=== PATIENT | female | born 1975 | race Caucasian/White ===

== ENCOUNTER 2016-06-11 13:17 | Emergency (ER) | payer MEDICAID ==
[2016-06-11] MEDS ORDERED: 0.9 % SODIUM CHLORIDE 1,000 ML BAG IV ONE (13:37)
[2016-06-11] MEDS ORDERED: ONDANSETRON HCL IV 4 MG/2 ML VIAL IVP ONE (13:37)
--- NOTE | 2016-06-11 13:38 | Emergency Department Record ---
History of Present Illness - General Chief Complaint: Numbness Stated Complaint: NUMB/DIZZY/HEADFEELS LIKE IT IS ON FIRE Time Seen by Provider: 06/11/16 13:29 Source: Patient, Family Mode of Arrival: Ambulatory Limitations: No limitations - History of Present Illness Initial Comments: 40 yo female presents with 12 hours of feeling numb all over with a warm or burning feeling to the right racial area. No fevers. She denies any headache. She has some nausea. No vomiting. No recent illness. No changes in vision. No coordination changes. No speech changes. No chest pain. No back or abdominal pain. No difficulty walking. No history of HTN, DM, Neurologic, Cardiovascular disorders. Family history positive for HTN and DM only. PCP is the [facility] with Radha Astorga. Onset/Timin -: Hour(s) Location: Right face History of same: No Place: Home Severity: Moderate Quality: Burning Improves With: None Worsens With: None Context: Gradual onset Treatments Prior to Arrival: None - Linda Coma Scale Eye Response: (4) Open spontaneously Motor Response: (6) Obeys commands Verbal Response: (5) Oriented [place] Total: 15 - Related Data Home Medications: Home Medications Medication Instructions Recorded Confirmed Last Taken Ibuprofen [Motrin 600Mg] 600 mg PO Q6H PRN 09/28/14 06/11/16 1 Day Ago Multivitamin [Multi-Vitamin Daily] 1 each PO DAILY 10/07/14 06/11/16 1 Day Ago Previous Rx's Medication Instructions Recorded Epinephrine [Epipen] 0.3 mg IM ASDIR PRN #1 syr 01/01/15 Meclizine HCl [Antivert] 25 mg PO Q8H #20 tablet 06/11/16 Ondansetron [Zofran Odt] 4 mg PO Q8H #20 tab.rapdis 06/11/16 Allergies/Adverse Reactions: Allergies Allergy/AdvReac Type Severity Reaction Status Date / Time naproxen Allergy Severe ANAPHYLAXIS Verified 06/11/16 13:28 naproxen sodium [From Aleve] Allergy Severe ANAPHYLAXIS Verified 06/11/16 13:28 morphine Allergy Intermediate RASH Verified 06/11/16 13:28 tramadol Allergy Intermediate RASH Verified 06/11/16 13:28 venom-honey bee Allergy Intermediate HIVES Verified 06/11/16 13:28 [bee venom (honey bee)] seafood Allergy Intermediate HIVES Uncoded 06/11/16 13:28 Travel Screening - Travel/Exposure Within Last 30 Days Have you traveled within the last 30 days?: No - Travel/Exposure Within Last Year Have you traveled outside the [place] in the last year?: No - Additonal Travel Details Have you been exposed to anyone with a communicable illness?: No - Travel Symptoms Symptom Screening: None Review of Systems Constitutional: Reports: Malaise, Weakness, Other (Numb all over). Denies: Chills, Fever Eyes: Denies: Eye discharge, Eye pain, Photophobia, Vision change ENT: Denies: Congestion, Ear pain, Throat pain Respiratory: Denies: Cough, Dyspnea, Hemoptysis, Stridor, Wheezes Cardiovascular: Denies: Arrhythmia, Chest pain, Dyspnea on exertion, Edema, Palpitations, Syncope Endocrine: Reports: Fatigue Gastrointestinal: Reports: Nausea. Denies: Abdominal pain, Diarrhea, Vomiting Genitourinary: Denies: Abnormal menses, Dysuria, Hematuria, Urgency Musculoskeletal: Denies: Arthralgia, Back pain, Joint swelling, Myalgia Skin: Denies: Bruising, Change in color, Rash Neurological: Reports: Numbness, Tingling, Vertigo. Denies: Abnormal gait, Confusion, Headache, Seizure, Tremors, Weakness Psychiatric: Reports: As per HPI. Denies: Anxiety, Auditory hallucinations, Depression, Homicidal thoughts, Suicidal thoughts, Visual hallucinations Hematological/Lymphatic: Reports: As per HPI. Denies: Anemia, Blood Clots, Easy bleeding, Easy bruising, Swollen glands Past Medical History - SOCIAL HISTORY Smoking Status: Current every day smoker - RESPIRATORY Hx Respiratory Disorders: No - CARDIOVASCULAR Hx Cardio Disorders: No - NEURO Hx Neuro Disorders: No - GI Hx GI Disorders: No - Hx Genitourinary Disorders: No - ENDOCRINE Hx Endocrine Disorders: No - MUSCULOSKELETAL Hx Musculoskeletal Disorders: Yes Hx Arthritis: Yes - PSYCH Hx Psych Problems: No - HEMATOLOGY/ONCOLOGY Hx Hematology/Oncology Disorders: No Family Medical History Any Significant Family History?: Yes Hx Heart Disease: Father, Grandparents Hx HTN: Father, Grandparents Physical Exam - General General Appearance: Alert, Oriented x3, Cooperative, No acute distress Limitations: No limitations - Head Head exam: Atraumatic, Normocephalic, Normal inspection - Eye Eye exam: Normal appearance, PERRL, EOMI. negative: Conjunctival injection, Nystagmus, Periorbital swelling, Scleral icterus Pupils: Normal accommodation. negative: Irregular - ENT ENT exam: Normal exam, Mucous membranes moist, Normal external ear exam, Normal orophraynx, TM's normal bilaterally Ear exam: Normal external inspection. negative: External canal tenderness Nasal Exam: Normal inspection. negative: Discharge, Sinus tenderness Mouth exam: Normal external inspection, Tongue normal Teeth exam: Normal inspection. negative: Dental caries Throat exam: Normal inspection. negative: Tonsillar erythema, Tonsillar exudate - Neck Neck exam: Normal inspection, Full ROM. negative: Tenderness - Respiratory Respiratory exam: Normal lung sounds bilaterally. negative: Respiratory distress - Cardiovascular Cardiovascular Exam: Regular rate, Normal rhythm, Normal heart sounds Peripheral Pulses: 2+: Radial (R), Radial (L) - GI/Abdominal GI/Abdominal exam: Soft. negative: Tenderness - Rectal Rectal exam: Deferred - exam: Deferred - Extremities Extremities exam: Normal inspection, Full ROM, Normal capillary refill. negative: Calf tenderness, Joint swelling, Pedal edema, Tenderness - Back Back exam: Reports: Normal inspection, Full ROM. Denies: CVA tenderness (R), CVA tenderness (L), Muscle spasm, Rash noted, Tenderness - Neurological Neurological exam: Alert, CN II-XII intact, Normal gait, Oriented X3, Reflexes normal, Other (no PND, normal CHRIS, normal coordination with out dysmetria). negative: Abnormal gait, Altered, Motor sensory deficit - Psychiatric Psychiatric exam: Normal affect, Normal mood. negative: Agitated, Anxious - Skin Skin exam: Dry, Intact, Normal color, Warm Course Vital Signs 06/11/16 13:23 Temperature 98.7 F Pulse Rate 78 Respiratory 16 Rate Blood Pressure 116/72 Pulse Ox 98 - Reevaluation(s) Reevaluation #1: KEG 13:38 NSR, normal axis, intervals and ST segments. No acute change. Rate is 73. 06/11/16 14:04 06/11/16 15:16 Reevaluation #2: The labs were reviewed No acute changes CRP was 1.0 CMP without changes The negative HCT result was reviewed with the patient The symptoms are a burning like feeling with a room spinning. No focal neurologic findings on exam Close follow up with be arranged for the patient with her PCP. 06/11/16 15:16 Medical Decision Making - Lab Data Result diagrams: 06/11/16 13:55 06/11/16 13:55 Disposition Disposition: Discharge Clinical Impression: Vertigo Disposition: Home, Self-Care Condition: (1) Good Instructions: Vertigo (ED) Additional Instructions: Immediately return if worse or any new symptoms You have close follow up with your doctor on Saturday at 10:40am Zofran and Antivert as directed for your symptoms. Prescriptions: Meclizine HCl [Antivert] 25 mg PO Q8H #20 tablet Ondansetron [Zofran Odt] 4 mg PO Q8H #20 tab.rapdis Forms: Patient Portal Access Time of Disposition: 15:20
[2016-06-11 14:05] LABS: BASO % 0.5 % (0-6); GRAN % 61.5 % (47-80); HEMATOCRIT 38.7 % (35.0-47.0); HEMOGLOBIN 13.1 gm/dl (11.6-16.0); LYMPH % 30.9 % (16-45); MEAN CELL VOLUME 99.7 fl (81-97); MEAN CORPUSCULAR HEMOGLOBIN 33.8 pg (27-33); MEAN CORPUSCULAR HGB CONC 33.9 g/dl (32-36); MEAN PLATELET VOLUME 10.9 fl (7.4-10.4); MONO % 6.1 % (0-9); PLATELET COUNT 235 K/uL (130-400); RED BLOOD COUNT 3.88 M/uL (3.80-5.40); RED CELL DISTRIBUTION WIDTH 12.7 % (11.5-14.5)
[2016-06-11] MEDS ORDERED: MECLIZINE 25 MG TABLET PO ONE (14:21)
[2016-06-11 15:02] LABS: ALB/GLOB RATIO 1.6 (1.1-1.8); ALBUMIN 4.1 gm/dL (3.5-5.0); ALKALINE PHOSPHATASE 65 U/L (38-126); ALT/SGPT 25 U/L (9-52); AST/SGOT 26 U/L (14-36); BILIRUBIN,TOTAL 0.27 mg/dL (0.2-1.3); BLOOD UREA NITROGEN 18 mg/dL (7-17); CREATININE 0.9 mg/dL (0.52-1.04); EST GLOMERULAR FILTRATION RATE > 60 ml/min; GLUCOSE,RANDOM 93 mg/dL (70-110); TOTAL PROTEIN 6.7 gm/dL (6.3-8.2)
[2016-06-11 15:16] LABS: HCG,QUALITATIVE URINE NEGATIVE (NEGATIVE)
[2016-06-11 15:29] LABS: URINE APPEARANCE CLEAR; URINE BILIRUBIN NEGATIVE (NEGATIVE); URINE BLOOD NEGATIVE (NEGATIVE); URINE COLOR YELLOW; URINE GLUCOSE (UA) NEGATIVE (NEGATIVE); URINE KETONE NEGATIVE (NEGATIVE); URINE LEUKOCYTE ESTERASE NEGATIVE (NEGATIVE); URINE NITRITE NEGATIVE (NEGATIVE); URINE PROTEIN NEGATIVE (NEGATIVE); URINE UROBILINOGEN 0.2 E.U./dL (0.20 - 1.00)
[2016-06-11 17:12] LABS: THYROID STIMULATING HORMONE 0.52 uIU/ml (0.465-4.68)
--- NOTE | 2016-06-14 17:22 | CT SCAN REPORT ---
EXAM: CT OF THE BRAIN WITHOUT CONTRAST HISTORY: SUDDEN BODY NUMBNESS. TECHNIQUE: Sequential axial images were obtained from the foramen magnum to the vertex without contrast administration. FINDINGS: The brain volume is normal. There is no large territorial infarct, hemorrhage, mass effect, or midline shift. No extraaxial fluid collection. The orbits, paranasal sinuses, and mastoid air cells are normal. IMPRESSION: NO ACUTE INTRACRANIAL ABNORMALITY IS APPRECIATED. JOB NUMBER: [id number] MTDD
== END 2016-06-11 15:30 | disposition home or self-care (01) ==
LOC: ER 13:17
DX: R42 Dizziness and giddiness (principal); R20.0 Anesthesia of skin; R51 Headache; F17.200 Nicotine dependence, unspecified, uncomplicated
CPT/HCPCS: 99284 ×2; 96374; 96361; 83735; 85025; 86140; 80053; 81003; 84443; 81025; 70450; 93005; 93010; J2405; J7030

== ENCOUNTER 2017-11-27 18:22 | Emergency (ER) | payer MEDICAID ==
[2017-11-27] MEDS ORDERED: 0.9 % SODIUM CHLORIDE 1,000 ML BAG IV ONE (18:32)
[2017-11-27] MEDS ORDERED: METOCLOPRAMIDE HCL 10 MG/2 ML VIAL IVP ONE (18:32)
[2017-11-27] MEDS ORDERED: DIPHENHYDRAMINE HCL 50 MG/ML VIAL IVP ONE (18:32)
--- NOTE | 2017-11-27 18:37 | Emergency Department Record ---
History of Present Illness - General Chief Complaint: Headache Migraine Stated Complaint: MIGRAINE Source: Patient Mode of Arrival: Ambulatory Limitations: No limitations - History of Present Illness Initial Comments: 42 yo male presents with headache. 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 She states she does get frequent headaches but they normally go away with Excedrin. She has some mild nausea and light sensitivity. This is not unusually. She has been worked up with HCT and MRI in 2017 for headaches and numbness/tingling. The HCT and MRI at that time were negative. No vision changes, confusion, speech changes, coordination changes, weakness. No other recent health changes. Her doctor in [facility]ha [facility]orga at [facility] Complaint: "Migraine" -: Hour(s) (4) Onset Description: Awoke with symptoms (Works 3rd shift, woke up with the symptoms) Location: Frontal Severity: Moderate Quality: Aching, Similar to previous headaches (similar but did not go away with Excedrin) Consistency: Constant Improves With: Nothing Worsens With: Light Associated Symptoms: Other (Nausea, light sensitive) Treatments Prior to Arrival: Migraine medication (Over the counter) - Related Data Allergies Allergy/AdvReac Type Severity Reaction Status Date / Time naproxen Allergy Severe ANAPHYLAXIS Verified 11/27/17 18:30 naproxen sodium [From Aleve] Allergy Severe ANAPHYLAXIS Verified 11/27/17 18:30 morphine Allergy Intermediate RASH Verified 11/27/17 18:30 tramadol Allergy Intermediate RASH Verified 11/27/17 18:30 venom-honey bee Allergy Intermediate HIVES Verified 11/27/17 18:30 [bee venom (honey bee)] hydromorphone [From Dilaudid] Allergy ITCHING Verified 11/27/17 18:31 seafood Allergy Intermediate HIVES Uncoded 06/11/16 13:28 Review of Systems Constitutional: Denies: Chills, Fever, Malaise, Weakness Eyes: Reports: Photophobia. Denies: Eye discharge, Eye pain, Vision change ENT: Denies: Congestion, Throat pain Respiratory: Denies: Cough, Dyspnea, Hemoptysis, Wheezes Cardiovascular: Denies: Chest pain, Palpitations, Syncope Endocrine: Denies: Fatigue Gastrointestinal: Reports: Nausea. Denies: Abdominal pain, Diarrhea, Vomiting Genitourinary: Denies: Dysuria, Urgency Musculoskeletal: Denies: Arthralgia, Back pain, Joint swelling, Myalgia Skin: Denies: Bruising, Change in color, Rash Neurological: Reports: Headache. Denies: Abnormal gait, Confusion, Numbness, Paresthesias, Seizure, Tingling, Tremors, Vertigo, Weakness Psychiatric: Denies: Anxiety Hematological/Lymphatic: Denies: Blood Clots, Easy bleeding, Easy bruising, Swollen glands Past Medical History - SOCIAL HISTORY Smoking Status: Current every day smoker - RESPIRATORY Hx Respiratory Disorders: No - CARDIOVASCULAR Hx Cardio Disorders: No - NEURO Hx Neuro Disorders: No - GI Hx GI Disorders: No - Hx Genitourinary Disorders: No - ENDOCRINE Hx Endocrine Disorders: No - MUSCULOSKELETAL Hx Musculoskeletal Disorders: Yes Hx Arthritis: Yes - PSYCH Hx Psych Problems: No - HEMATOLOGY/ONCOLOGY Hx Hematology/Oncology Disorders: No Family Medical History Hx Heart Disease: Father, Grandparents Hx HTN: Father, Grandparents Physical Exam - General General Appearance: Alert, Oriented x3, Cooperative, No acute distress Limitations: No limitations - Head Head exam: Atraumatic, Normocephalic, Normal inspection - Eye Eye exam: Normal appearance, PERRL, EOMI. negative: Conjunctival injection, Nystagmus, Periorbital swelling, Scleral icterus - ENT ENT exam: Normal exam, Mucous membranes moist Ear exam: Normal external inspection Nasal Exam: Normal inspection Mouth exam: Normal external inspection Teeth exam: Normal inspection Throat exam: Normal inspection. negative: Tonsillar erythema, Tonsillomegaly, R peritonsillar mass, L peritonsillar mass - Neck Neck exam: Normal inspection, Full ROM. negative: Tenderness - Respiratory Respiratory exam: Normal lung sounds bilaterally - Cardiovascular Cardiovascular Exam: Regular rate, Normal rhythm, Normal heart sounds - GI/Abdominal GI/Abdominal exam: Soft. negative: Tenderness - Rectal Rectal exam: Deferred - exam: Deferred - Extremities Extremities exam: Normal inspection, Full ROM, Normal capillary refill. negative: Tenderness - Back Back exam: Reports: Full ROM - Neurological Neurological exam: Alert, CN II-XII intact, Normal gait, Oriented X3, Reflexes normal. negative: Abnormal gait, Altered, Motor sensory deficit - Psychiatric Psychiatric exam: Normal affect, Normal mood. negative: Agitated, Anxious - Skin Skin exam: Dry, Intact, Normal color, Warm. negative: Cyanosis, Diaphoretic, Erythema, Mottled Course - Reevaluation(s) Reevaluation #1: EMR reviewed. 2017 HCT and MRI where normal. 11/27/17 19:06 11/27/17 19:24 The Labs were reviewed and are normal. 11/27/17 19:28 The patient has been up to the bathroom. Steady gate. Appears well. Her headache is improving but not gone. She states she is not allergic to Morphine. She has taken it with knee surgery and back injury without reaction. She states she takes Benadryl to prevent itching that did occur in the remote past. Medical Decision Making - Lab Data Result diagrams: 11/27/17 18:40 11/27/17 18:40 Disposition Disposition: Discharge Clinical Impression: Migraine Disposition: Home, Self-Care Condition: (1) Good Instructions: Migraine Headache (ED) Additional Instructions: Rest tonight Off work tonight Call your family doctor for close follow up Return to the ED if you have any concerns, return of symptoms or questions Forms: Patient Portal Access Quality - Quality Measures Quality Measures: N/A, Headache (All Ages) - Headache: Neuroimaging Quality Measure: Measure #419: Overuse of Neuroimaging ICD10 Codes Entered: Yes Neurological Exam: Patient had a normal neurological exam. [G9535] Headache: Use of Neuroimaging: < CTA, CT, MRA or MRI was NOT ordered > [G9534] - Blood Pressure Screening Does Patient Have Any of the Following: No Blood Pressure Classification: Normal BP Reading Systolic Measurement: 102 Diastolic Measurement: 57 Screening for High Blood Pressure: < Normal BP, F/U Not Required > [G8783]
[2017-11-27] MEDS ORDERED: DEXAMETHASONE 4 MG/ML 1ML VIAL IVP ONE (18:40)
[2017-11-27 18:49] LABS: BASO % 0.3 % (0-6); EOS % 2.1 % (0-6); HEMATOCRIT 39.4 % (35.0-47.0); LYMPH % 46.7 % (16-45); MEAN CELL VOLUME 96.8 fl (81-97); MEAN CORPUSCULAR HEMOGLOBIN 31.9 pg (27-33); MONO % 5.9 % (0-9); PLATELET COUNT 231 K/uL (130-400); RED BLOOD COUNT 4.07 M/uL (3.80-5.40); RED CELL DISTRIBUTION WIDTH 12.8 % (11.5-14.5); WHITE BLOOD COUNT W/O DIFF 6.7 K/uL (4.2-12.2)
[2017-11-27 19:02] LABS: BLOOD UREA NITROGEN 15 mg/dL (6-20); CREATININE 0.9 mg/dL (0.5-0.9); EST GLOMERULAR FILTRATION RATE > 60 mL/min
[2017-11-27 19:05] LABS: GLUCOSE,RANDOM 112 mg/dL (74-109)
[2017-11-27] MEDS ORDERED: MAGNESIUM SULFATE 16 MEQ in 0.9 % SODIUM CHLORIDE 100ML 100 ML IV ONE (19:28)
[2017-11-27] MEDS ORDERED: MORPHINE SULFATE 10 MG/ML VIAL IVP ONE (19:28)
== END 2017-11-27 20:23 | disposition home or self-care (01) ==
LOC: ER 18:22
DX: G43.909 Migraine, unspecified, not intractable, without status migrainosus (principal); R11.10 Vomiting, unspecified; H53.149 Visual discomfort, unspecified; F17.210 Nicotine dependence, cigarettes, uncomplicated
CPT/HCPCS: 80048; 84703; 85025; 96361; 96374; 96375; 99284; J1200; J2270; J2765; J7030

== ENCOUNTER 2018-06-06 14:57 | Emergency (ER) | payer SELFPAY ==
[2018-06-06] MEDS ORDERED: DIPHENHYDRAMINE HCL 50 MG/ML VIAL IVP ONE (15:06)
[2018-06-06] MEDS ORDERED: ONDANSETRON HCL IV 4 MG/2 ML VIAL IVP ONE ×2 (15:06→15:28)
[2018-06-06] MEDS ORDERED: 0.9 % SODIUM CHLORIDE 1,000 ML BAG IV ONE (15:06)
--- NOTE | 2018-06-06 15:09 | Emergency Department Record ---
History of Present Illness - General Chief Complaint: Abdominal Pain Stated Complaint: UPPER ABD PAIN AND NAUSEA Time Seen by Provider: 06/06/18 15:06 Source: Patient Mode of Arrival: Ambulatory Limitations: No limitations - History of Present Illness Initial Comments: 42 yo female presents right upper abdominal pain for about three days. She has nausea and poor appetite. The pain is worse with food. No rash. No history of abdominal surgery. No fevers. No hematuria. The pain is located in the right upper abdomen with some occasional back radiation. No cough, fever, chest pain, shortness of breath, or edema. MD Complaint: Abdominal pain -: Days(s) (3) Location: RUQ Radiation: RUQ Migration to: RUQ Severity: Moderate Quality: Aching Consistency: Constant Improves With: Nothing Worsens With: Eating Context: Other Associated Symptoms: Anorexia - Related Data Previous Rx's Medication Instructions Recorded Hydrocodone/Acetaminophen [Odonnell 1 tab PO Q6H PRN #10 tab 06/06/18 5mg/325mg] Ondansetron [Zofran Odt] 4 mg PO Q8H #15 tab.rapdis 06/06/18 Allergies Allergy/AdvReac Type Severity Reaction Status Date / Time naproxen Allergy Severe ANAPHYLAXIS Unverified 12/30/17 14:39 naproxen sodium [From Aleve] Allergy Severe ANAPHYLAXIS Unverified 12/30/17 14: 39 morphine Allergy Intermediate RASH Unverified 12/30/17 14:39 tramadol Allergy Intermediate RASH Unverified 12/30/17 14:39 venom-honey bee Allergy Intermediate HIVES Unverified 12/30/17 14:39 [bee venom (honey bee)] hydromorphone [From Dilaudid] Allergy ITCHING Unverified 12/30/17 14:39 seafood Allergy Intermediate HIVES Uncoded 06/11/16 13:28 Review of Systems Constitutional: Denies: Chills, Fever, Malaise, Weakness Eyes: Denies: Eye discharge ENT: Denies: Congestion, Throat pain Respiratory: Denies: Cough, Dyspnea Cardiovascular: Denies: Chest pain, Palpitations, Syncope Endocrine: Denies: Fatigue Gastrointestinal: Reports: As per HPI, Abdominal pain, Vomiting. Denies: Diarrhea Genitourinary: Denies: Dysuria, Urgency Musculoskeletal: Reports: Back pain. Denies: Arthralgia, Myalgia Skin: Denies: Bruising, Change in color, Rash Neurological: Denies: Confusion Psychiatric: Denies: Anxiety Hematological/Lymphatic: Denies: Easy bleeding, Easy bruising Past Medical History - SOCIAL HISTORY Smoking Status: Current every day smoker - RESPIRATORY Hx Respiratory Disorders: No - CARDIOVASCULAR Hx Cardio Disorders: No - NEURO Hx Neuro Disorders: No - GI Hx GI Disorders: No - Hx Genitourinary Disorders: No - ENDOCRINE Hx Endocrine Disorders: No - MUSCULOSKELETAL Hx Musculoskeletal Disorders: Yes Hx Arthritis: Yes - PSYCH Hx Psych Problems: No - HEMATOLOGY/ONCOLOGY Hx Hematology/Oncology Disorders: No Family Medical History Hx Heart Disease: Father, Grandparents Hx HTN: Father, Grandparents Physical Exam - General General Appearance: Alert, Oriented x3, Cooperative, No acute distress Limitations: No limitations - Head Head exam: Atraumatic, Normal inspection - Eye Eye exam: Normal appearance. negative: Conjunctival injection - ENT ENT exam: Normal exam Ear exam: Normal external inspection Nasal Exam: Normal inspection Mouth exam: Normal external inspection - Neck Neck exam: Normal inspection - Respiratory Respiratory exam: Normal lung sounds bilaterally. negative: Respiratory distress - Cardiovascular Cardiovascular Exam: Regular rate, Normal rhythm, Normal heart sounds - GI/Abdominal GI/Abdominal exam: Soft, Guarding, Tenderness, Other (Soft abdomen, tender RUQ with deep palpation). negative: Distended, Rebound - Rectal Rectal exam: Deferred - exam: Deferred - Extremities Extremities exam: Normal inspection. negative: Pedal edema - Back Back exam: Denies: CVA tenderness (R), CVA tenderness (L), Rash noted - Neurological Neurological exam: Alert, Oriented X3 - Psychiatric Psychiatric exam: Normal affect, Normal mood. negative: Agitated, Anxious - Skin Skin exam: Dry, Intact, Normal color, Warm Course - Reevaluation(s) Reevaluation #1: She states no allergy with Morphine. She has had it in the past. She states she can take Motrin but not Naproxen (anaphylaxis). 06/06/18 15:37 The CBC was reviewed No acute abnormality The UA is negative for infection The UCG is negative. 06/06/18 15:38 06/06/18 15:48 The CMP was reviewed. No significant abnormalities. Normal LFT's, Lipase, and Bili. Alk Phos is 91 (norm 87). 06/06/18 17:29 The US was negative for acute cholecystitis. No stones. Tech noted sludge. Normal wall thickness. We discussed the results. The patient will be given diet precautions for possible biliary dysfunction, referral for follow up with Dr Razo, instructions on reasons to return as well over the weekend if any uncontrolled pain, fever, vomiting. Medical Decision Making - Lab Data Result diagrams: 06/06/18 15:10 06/06/18 15:10 Disposition Disposition: Discharge Clinical Impression: Right upper quadrant abdominal pain Disposition: Home, Self-Care Condition: (1) Good Instructions: Biliary Colic (ED), Abdominal Pain (ED) Additional Instructions: Eat a VERY low fat bland diet this Call Dr Razo's office on Saturday Return or be seen if you have uncontrolled pain, fever, vomiting or any new concerns Call [phone] to schedule an appointment with Dr Razo first of the week Prescriptions: Hydrocodone/Acetaminophen [Odonnell 5mg/325mg] 1 tab PO Q6H PRN #10 tab PRN Reason: Pain - General Ondansetron [Zofran Odt] 4 mg PO Q8H #15 tab.rapdis Referrals: Pierre Razo [DOCTOR OF OSTEOPATH] - Forms: Patient Portal Access Time of Disposition: 17:40 Quality - Quality Measures Quality Measures: N/A - Blood Pressure Screening Does Patient Have Any of the Following: No Blood Pressure Classification: Pre-Hypertensive BP Reading Systolic Measurement: 123 Diastolic Measurement: 68 Screening for High Blood Pressure: < Pre-Hypertensive BP, F/U Documented > [ G8950] Pre-Hypertensive Follow-up Interventions: Referral to alternative/primary care provider.
[2018-06-06 15:24] LABS: BASO % 0.2 % (0-6); EOS % 1.3 % (0-6); GRAN % 50.3 % (47-80); HEMATOCRIT 40.7 % (35.0-47.0); HEMOGLOBIN 13.5 gm/dl (11.6-16.0); MEAN CORPUSCULAR HEMOGLOBIN 31.8 pg (27-33); MEAN CORPUSCULAR HGB CONC 33.2 g/dl (32-36); MEAN PLATELET VOLUME 11.3 fl (7.4-10.4); MONO % 5.2 % (0-9); PLATELET COUNT 254 K/uL (130-400); RED BLOOD COUNT 4.24 M/uL (3.80-5.40); RED CELL DISTRIBUTION WIDTH 12.3 % (11.5-14.5); WHITE BLOOD COUNT W/O DIFF 8.7 K/uL (4.2-12.2)
[2018-06-06] MEDS ORDERED: MORPHINE SULFATE 10 MG/ML VIAL IVP ONE ×2 (15:28→17:06)
[2018-06-06 15:32] LABS: BLOOD UREA NITROGEN 16 mg/dL (6-20); CREATININE 0.9 mg/dL (0.5-0.9); EST GLOMERULAR FILTRATION RATE > 60 mL/min
[2018-06-06 15:32] LABS: URINE APPEARANCE SL CLOUDY; URINE BILIRUBIN NEGATIVE (NEGATIVE); URINE BLOOD NEGATIVE (NEGATIVE); URINE COLOR YELLOW; URINE GLUCOSE (UA) NEGATIVE (NEGATIVE); URINE KETONE NEGATIVE (NEGATIVE); URINE LEUKOCYTE ESTERASE NEGATIVE (NEGATIVE); URINE NITRITE NEGATIVE (NEGATIVE); URINE PROTEIN NEGATIVE (NEGATIVE); URINE UROBILINOGEN 0.2 E.U./dL (0.20 - 1.00)
[2018-06-06 15:33] LABS: TOTAL PROTEIN 7.5 g/dL (6.6-8.7)
[2018-06-06 15:35] LABS: GLUCOSE,RANDOM 99 mg/dL (74-109)
[2018-06-06 15:35] LABS: HCG,QUALITATIVE URINE NEGATIVE (NEGATIVE)
[2018-06-06 15:37] LABS: ALT/SGPT 16 U/L (<33)
[2018-06-06 15:38] LABS: ALB/GLOB RATIO 1.8 (1.1-1.8); ALBUMIN 4.8 g/dL (4.0-5.0); ALKALINE PHOSPHATASE 91 U/L (45-87); AST/SGOT 21 U/L (10.0-35.0); LIPASE 40 U/L (13-60)
--- NOTE | 2018-06-08 18:15 | ULTRASOUND REPORT ---
EXAM: ULTRASOUND ABDOMEN, COMPLETE HISTORY: NAUSEA. TECHNIQUE: Complete abdominal ultrasound. COMPARISON: None. FINDINGS: Unremarkable appearance of the visualized pancreatic head and body. Pancreatic tail obscured by shadowing bowel gas. Visualized portions of the abdominal aorta not appreciably dilated. Unremarkable appearance of the visualized hepatic parenchyma. Flow is demonstrated within main portal vein. Unremarkable rahman-scale appearance of the inferior vena cava at the level of the liver. No gallstones. No gallbladder wall thickening or pericholecystic fluid. The common bile duct measures up to 6 mm in diameter, which is within normal limits. Right renal length is 10.9 cm. No hydronephrosis. No shadowing calculus or focal mass is demonstrated. Left renal length is 10.6 cm. No hydronephrosis. No shadowing calculus or focal mass is demonstrated. Unremarkable appearance of the spleen. No visible ascites. IMPRESSION: UNREMARKABLE ABDOMINAL ULTRASOUND. NO EVIDENCE OF CHOLELITHIASIS OR ACUTE CHOLECYSTITIS. JOB NUMBER: [id number] MTDD
== END 2018-06-06 17:50 | disposition home or self-care (01) ==
LOC: ER 14:57
DX: R10.11 Right upper quadrant pain (principal); R11.0 Nausea; F17.210 Nicotine dependence, cigarettes, uncomplicated
CPT/HCPCS: 99284 ×2; 96376; 96374; 96375; 83690; 85025; 80053; 81003; 81025; 76700; J2405; J2270; J1200; J7030

== ENCOUNTER 2019-04-24 17:36 | Emergency (ER) | payer OTHER ==
[2019-04-24] MEDS ORDERED: DIPHENHYDRAMINE HCL 50 MG/ML VIAL IVP ONE (17:54)
[2019-04-24] MEDS ORDERED: METOCLOPRAMIDE HCL 10 MG/2 ML VIAL IVP ONE (17:54)
--- NOTE | 2019-04-24 18:04 | Emergency Department Record ---
History of Present Illness - General Source: Patient Mode of Arrival: Ambulatory Limitations: No limitations - History of Present Illness Initial Comments: The patient is here due to a worsening SALGADO over the last day. She states she has LONG hx of chronic migraine SALGADO's and always has some pain. Yesterday she developed a worsening pain which she describes as a sharp stabbing shooting pain that travels from one eye to the other. She is quite nauseated with it also but has not vomited. There has been no neck pain, fever, chills, vomiting, or balance issues. The patient states she has a LONG hx of these exact same SALGADO's and this episode is not different. She has been having trouble getting the correct medicines from her PCP so she decided to come to the ER. MD Complaint: "Migraine" Onset/Timin -: Month(s) Onset Description: Gradual Worsens With: None Associated Symptoms: Nausea, Other <George Spangler - Last Filed: 04/24/19 18:53> <CLIVE CRUZ - Last Filed: 04/24/19 19:44> - General Chief Complaint: Headache Migraine Stated Complaint: MIGRAINE Time Seen by Provider: 04/24/19 17:43 - Related Data Previous Rx's Medication Instructions Recorded Zolmitriptan [Zomig] 5 mg PO DAILY PRN #6 tablet 04/24/19 Allergies Allergy/AdvReac Type Severity Reaction Status Date / Time naproxen Allergy Severe ANAPHYLAXIS Verified 04/24/19 17:53 naproxen sodium [From Aleve] Allergy Severe ANAPHYLAXIS Verified 04/24/19 17:53 morphine Allergy Intermediate RASH Verified 04/24/19 17:53 tramadol Allergy Intermediate RASH Verified 04/24/19 17:53 venom-honey bee Allergy Intermediate HIVES Verified 04/24/19 17:53 [bee venom (honey bee)] hydromorphone [From Dilaudid] Allergy ITCHING Verified 04/24/19 17:53 seafood Allergy Intermediate HIVES Uncoded 04/24/19 17:53 Travel Screening - Travel/Exposure Within Last 30 Days Have you traveled within the last 30 days?: No - Travel/Exposure Within Last Year Have you traveled outside the [place] in the last year?: No - Additonal Travel Details Have you been exposed to anyone with a communicable illness?: No - Travel Symptoms Symptom Screening: Headache <George Spangler Last Filed: 04/24/19 18:53> Review of Systems Constitutional: Denies: Chills, Fever Eyes: Denies: Eye discharge ENT: Denies: Congestion Respiratory: Denies: Cough, Dyspnea <George Spangler Last Filed: 04/24/19 18:53> Past Medical History - SOCIAL HISTORY Smoking Status: Current every day smoker Alcohol Use: Rare Drug Use: None - RESPIRATORY Hx Respiratory Disorders: No - CARDIOVASCULAR Hx Cardio Disorders: No - NEURO Hx Neuro Disorders: Yes Hx Headaches: Yes - GI Hx GI Disorders: No - Hx Genitourinary Disorders: No - ENDOCRINE Hx Endocrine Disorders: No - MUSCULOSKELETAL Hx Musculoskeletal Disorders: Yes Hx Arthritis: Yes Comment:: neck and shoulder injury. - PSYCH Hx Psych Problems: No - HEMATOLOGY/ONCOLOGY Hx Hematology/Oncology Disorders: No <George Spangler Last Filed: 04/24/19 18:53> Family Medical History Any Significant Family History?: No Hx Heart Disease: Father, Grandparents Hx HTN: Father, Grandparents <George Spangler Last Filed: 04/24/19 18:53> Physical Exam - General General Appearance: Alert, Oriented x3, Cooperative, No acute distress (The patient appears very comfortable in no distress.) - Head Head exam: Atraumatic, Normocephalic, Normal inspection - Eye Eye exam: Normal appearance, PERRL, EOMI - ENT Throat exam: Normal inspection. negative: Tonsillar erythema, Tonsillar exudate - Neck Neck exam: Normal inspection, Full ROM. negative: Lymphadenopathy, Meningismus (The neck is very supple.), Tenderness - Respiratory Respiratory exam: Normal lung sounds bilaterally. negative: Respiratory distress - Cardiovascular Cardiovascular Exam: Regular rate, Normal rhythm, Normal heart sounds - GI/Abdominal GI/Abdominal exam: Soft, Normal bowel sounds. negative: Tenderness - Extremities Extremities exam: Normal inspection, Full ROM, Normal capillary refill. negative: Tenderness - Neurological Neurological exam: Alert, Normal gait, Oriented X3, Other (Neg Drift and Rh omberg exams.). negative: Abnormal gait, Altered, Motor sensory deficit <George Spangler Last Filed: 04/24/19 18:53> Course Vital Signs 04/24/19 17:39 Temperature 97.7 F Pulse Rate 80 Respiratory 16 Rate Blood Pressure 139/70 Pulse Ox 99 - Reevaluation(s) Reevaluation #1: The patient is resting comfortably at this time and denies any new symptoms. She states her SALGADO is not much better. I did review her chart and did see where that she usually receives narcotic pain medicines for this. I did explain to her that I do not give narcotics for this condition. Since this is the first time I have seen her we will try the Decadron and Magnesium Sulfate and if they do not help I can order one dose of IV Morphine. 04/24/19 18:53 <George Spangler - Last Filed: 04/24/19 18:53> Vital Signs 04/24/19 17:39 Temperature 97.7 F Pulse Rate 80 Respiratory 16 Rate Blood Pressure 139/70 Pulse Ox 99 - Reevaluation(s) Reevaluation #1: 04/24/19 19:41 The chart was reviewed Prior CT and MRI reviewed The case had been turned over at shift change by DR Spangler. Waiting for medication effect and recheck of the patient On recheck the patient is doing much better. Her symptoms are controlled to a point of comfort. She is out of her Zomig. A limited number of Zomig will be provided until she follows up with her PCP. <CLIVE CRUZ - Last Filed: 04/24/19 19:44> Disposition Disposition: Discharge Time of Disposition: 18:56 <George Spangler - Last Filed: 04/24/19 18:53> Disposition: Discharge <CLIVE CRUZ - Last Filed: 04/24/19 19:44> Clinical Impression: Migraine Qualifiers: Migraine type: unspecified Status migrainosus presence: without status migrainosus Intractability: not intractable Qualified Code(s): G43.909 - Migraine, unspecified, not intractable, without status migrainosus Disposition: Home, Self-Care Condition: (2) Stable Instructions: Migraine Headache (ED) Additional Instructions: Please continue your regular medicines and please see your family doctor on Saturday for recheck. Return to the ER for any worsening symptoms. Prescriptions: Zolmitriptan [Zomig] 5 mg PO DAILY PRN #6 tablet PRN Reason: Headache Forms: Patient Portal Access Quality - Blood Pressure Screening Does Patient Have Any of the Following: No Blood Pressure Classification: Pre-Hypertensive BP Reading Systolic Measurement: 139 Diastolic Measurement: 70 Screening for High Blood Pressure: < Pre-Hypertensive BP, F/U Documented > [G8950] <George Spangler - Last Filed: 04/24/19 18:53> - Quality Measures Quality Measures: N/A, Headache (All Ages) - Headache: Neuroimaging Quality Measure: Measure #419: Overuse of Neuroimaging ICD10 Codes Entered: Yes Neurological Exam: Patient had a normal neurological exam. [G9535] Headache: Use of Neuroimaging: < CTA, CT, MRA or MRI was NOT ordered > [G9534] - Blood Pressure Screening Does Patient Have Any of the Following: No Blood Pressure Classification: Pre-Hypertensive BP Reading Systolic Measurement: 139 Diastolic Measurement: 70 Screening for High Blood Pressure: < Pre-Hypertensive BP, F/U Documented > [G8950] Pre-Hypertensive Follow-up Interventions: Referral to alternative/primary care provider. <CLIVE CRUZ - Last Filed: 04/24/19 19:44>
[2019-04-24] MEDS ORDERED: MAGNESIUM SULFATE 16 MEQ in 0.9 % SODIUM CHLORIDE 100ML 100 ML IV ONE (18:45)
[2019-04-24] MEDS ORDERED: DEXAMETHASONE 4 MG/ML 1ML VIAL IVP ONE (18:45)
[2019-04-24] MEDS ORDERED: MORPHINE SULFATE 5 MG/ML VIAL IVP ONE (18:56)
== END 2019-04-24 19:57 | disposition home or self-care (01) ==
LOC: ER 17:36
DX: G43.909 Migraine, unspecified, not intractable, without status migrainosus (principal); R11.2 Nausea with vomiting, unspecified
CPT/HCPCS: 96365; 96375; 99284; J1200; J2765